=== PATIENT | female | born 1955 | race Hispanic/Latino ===

== ENCOUNTER 2017-08-27 10:47 | Emergency (ER) | payer OTHER ==
[2017-08-27 10:47] VITALS: BMI 23.8
--- NOTE | 2017-08-27 11:02 | ED PDOC ---
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 She stated she was on her knee performing an IV placement. When she was standing up she felt a crunching sound from her left knee. She stated her left knee appears mildly swollen. Patient able to ambulate with mild discomfort of pain from her left knee. Patient denies hip pain, ankle pain, back pain, dizziness, ecchymosis, or abnormal gait. Time/Duration: Prior to Arrival Quality: Aching Context: Work Past Medical History - Provider Review Nursing Documentation Reviewed: Yes - Infectious Disease Hx of Infectious Diseases: None - Tetanus Immunization Tetanus Immunization: Up to Date - Past Medical History Past Medical History: No Previous - Cardiac Hx Hypertension: Yes Other/Comment: Open Heart Surgery - Psychiatric Hx Substance Use: No - Surgical History Hx Open Heart Surgery: Yes - Anesthesia Hx Anesthesia: Yes Hx Anesthesia Reactions: No Hx Malignant Hyperthermia: No - Suicidal Assessment Feels Threatened In Home Enviroment: No Family/Social History - Physician Review Nursing Documentation Reviewed: Yes Family/Social History: Other (Noncontributory) Smoking Status: Former Smoker Hx Alcohol Use: No Hx Substance Use: No Hx Substance Use Treatment: No Allergies/Home Meds Allergies/Adverse Reactions: Allergies No Known Allergies Allergy (Verified 08/27/17 10:55) Home Medications: Home Meds Medication Instructions Recorded Confirmed Losartan [Cozaar] 50 mg PO DAILY 08/27/17 08/27/17 Review of Systems - Review of Systems Constitutional: Normal. absent: Fatigue, Weight Change, Fevers Eyes: Normal ENT: Normal Respiratory: Normal. absent: SOB, Cough Cardiovascular: Normal. absent: Chest Pain, Palpitations Gastrointestinal: Normal. absent: Abdominal Pain, Nausea, Vomiting Genitourinary Female: Normal. absent: Dysuria, Frequency, Hematuria Musculoskeletal: Other (Left knee pain) Skin: Normal Neurological: Normal Endocrine: Normal Hemo/Lymphatic: Normal Psychiatric: Normal Physical Exam Vital Signs Temp Pulse Resp BP Pulse Ox 08/27/17 12:42 97.7 F 68 20 143/80 97 08/27/17 10:52 98.2 F 71 16 135/82 99 Temperature: Afebrile Blood Pressure: Normal Pulse: Regular Respiratory Rate: Normal Appearance: Positive for: Well-Appearing, Non-Toxic, Comfortable Pain Distress: None Mental Status: Positive for: Alert and Oriented X 3 - Systems Exam Head: Present: Atraumatic, Normocephalic Pupils: Present: PERRL Extroacular Muscles: Present: EOMI Conjunctiva: Present: Normal Mouth: Present: Moist Mucous Membranes Neck: Present: Normal Range of Motion Back: Present: Normal Inspection. No: CVA Tenderness Upper Extremity: Present: Normal Inspection, Normal ROM, NORMAL PULSES, Neurovascularly Intact, Capillary Refill < 2s. No: Cyanosis, Edema Lower Extremity: Present: Normal Inspection, NORMAL PULSES, Normal ROM, Tenderness (mild tenderness over proxima anterior lower leg area. No erythema, or septic knee joint), Neurovascularly Intact, Capillary Refill < 2 s. No: Edema, CALF TENDERNESS Neurological: Present: GCS=15, CN II-XII Intact, Speech Normal, Motor Func Grossly Intact, Normal Sensory Function, Normal Cerebellar Funct, Gait Normal Skin: Present: Warm, Dry, Normal Color. No: Rashes Psychiatric: Present: Alert, Oriented x 3, Normal Insight, Normal Concentration Medical Decision Making ED Course and Treatment: 08/27/17 11:00 Patient refuses pain medication at this time. 08/27/17 12:38 I spoke patient regarding knee x-rays results. I recommended pt RICE, and to f/ u orthopedist in 3-5 days. 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 If pain persist or worsen, to have MRI of knee. Re-evaluation Time: 12:41 Reassessment Condition: Re-examined, Improved - RAD Interpretation Narrative RAD Interpretations (Text): 08/27/17 12:41 Knee x-rays: No fracture. Radiology Orders: 08/27/17 11:01 KNEE WITH PATELLA LEFT 3 VIEW [RAD] Stat Disposition/Present on Arrival - Present on Arrival Any Indicators Present on Arrival: No History of DVT/PE: No History of Uncontrolled Diabetes: No Urinary Catheter: No History of Decub. Ulcer: No History Surgical Site Infection Following: None - Disposition Have Diagnosis and Disposition been Completed?: Yes Diagnosis: Knee pain Disposition: HOME/ ROUTINE Disposition Time: 12:42 Patient Plan: Discharge Condition: GOOD Discharge Instructions (ExitCare): Knee Pain (ED) Additional Instructions: Call private doctor for follow up visit in 1-2 days. Call employee health department for further instruction and f/u. Call orthopedist if knee pain worsen or if it does not improved, for possible MRI. Keep knee elevated, rest, maricruz bandage. Remove maricruz bandage at bedtime. Return to ED if pain worsen. Prescriptions: Famotidine [Pepcid] 40 mg PO DAILY #10 tablet Ibuprofen [Motrin] 600 mg PO Q8 PRN #20 tab PRN Reason: Pain, Severe (8-10) Referrals: Donte Rush MD [Family Provider] - Follow up with primary Santos Donahue MD [Staff Provider] - Follow up with primary Forms: [facility] (Czech), WORK NOTE
[2017-08-27 12:43] VITALS: BP 143/80; PULSE 68; RESP 20; TEMP 97.7; O2SAT 97
--- NOTE | 2017-08-27 13:53 | RAD ---
PROCEDURE: Left Knee Radiographs. HISTORY: Pain. COMPARISON: None. FINDINGS: BONES: Normal. No fracture. JOINTS: Normal. No osteoarthritis. JOINT EFFUSION: None. OTHER FINDINGS: None. IMPRESSION: Normal radiographs of the left knee.
== END 2017-08-27 12:42 | disposition home or self-care (01) ==
LOC: ED 10:47
DX: M25.562 Pain in left knee (principal)

== ENCOUNTER 2017-11-10 12:00 | Inpatient (IN) | payer OTHER ==
[2017-11-10 12:02] VITALS: BMI 22.4
--- NOTE | 2017-11-10 12:29 | ED PDOC ---
Arrival/HPI - General Chief Complaint: Lower Extremity Problem/Injury Time Seen by Provider: 11/10/17 12:20 Historian: Patient - History of Present Illness Narrative History of Present Illness (Text): 11/10/17 12:25 Patricia Soriano is a 62 year old female, whose past medical history includes hypertension and open heart surgery, who presents to the emergency department complaining of cramping on left leg s/p surgery for meniscus tear, pt states cramping/left leg discomfort x 1-2 days. Patient reports feeling a cold sensation, but no noted swelling since it has been in a brace since the surgery. Patient denies fall, paresthesias, focal weakness, sensory deficit. pt denied fever/chills/sweats, no cp/palpitations, mild sob, no abd pain, no n/v, no numbness/tingling, no urinary/bowel changes; Patient is with full range of motion in affected extremity. No other complaints were made. pt had outpt duplex/us of the left lower extremity and was noted to have + Left leg DVT, pt was instructed to come to ED for further care/evaluation pt denied other complaints PMD: Dr. Awan 11/10/17 18:12 Symptom Onset: Sudden Symptom Course: Unchanged Context: Home Past Medical History - Provider Review Nursing Documentation Reviewed: Yes - Travel History Have you recently traveled outside [place] w/in the past 3 mons?: No - Infectious Disease Hx of Infectious Diseases: None - Tetanus Immunization Tetanus Immunization: Up to Date - Reproductive Menopause: Yes - Past Medical History Past Medical History: No Previous - Cardiac Hx Hypertension: Yes Other/Comment: Open Heart Surgery - Psychiatric Hx Substance Use: No - Surgical History Hx Musculoskeletal Surgery: Yes (torn miniscus) Hx Open Heart Surgery: Yes - Anesthesia Hx Anesthesia: Yes Hx Anesthesia Reactions: No Hx Malignant Hyperthermia: No - Suicidal Assessment Feels Threatened In Home Enviroment: No Family/Social History - Physician Review Nursing Documentation Reviewed: Yes Family/Social History: Unknown Family HX Smoking Status: Former Smoker Hx Alcohol Use: No Hx Substance Use: No Hx Substance Use Treatment: No Allergies/Home Meds Allergies/Adverse Reactions: Allergies No Known Allergies Allergy (Verified 08/27/17 10:55) Home Medications: Home Meds Medication Instructions Recorded Confirmed Losartan [Cozaar] 50 mg PO DAILY 08/27/17 11/10/17 Aspirin [Ecotrin] 81 mg PO DAILY 11/10/17 11/10/17 Review of Systems - Review of Systems Constitutional: absent: Fevers Eyes: Normal ENT: Normal Respiratory: SOB. absent: Cough, Sputum Cardiovascular: absent: Chest Pain Gastrointestinal: absent: Abdominal Pain Genitourinary Female: absent: Dysuria, Frequency Musculoskeletal: Other (left leg cramping and cold sensation). absent: Back Pain Endocrine: absent: Diaphoresis Psychiatric: absent: Anxiety Physical Exam Vital Signs Reviewed: Yes (elevated BP) Vital Signs Temp Pulse Resp BP Pulse Ox 11/10/17 16:00 98.4 F 81 20 128/82 95 11/10/17 15:06 69 18 152/71 H 99 11/10/17 12:18 98.3 F 72 18 158/78 H 99 Temperature: Afebrile Blood Pressure: Hypertensive Pulse: Regular Respiratory Rate: Normal Appearance: Positive for: Well-Appearing, Non-Toxic, Other (uncomfortable, alert /awake, GCS = 15, oriented x 3, resting in bed; NAD) Pain Distress: None Mental Status: Positive for: Alert and Oriented X 3 - Systems Exam Head: Present: Atraumatic, Normocephalic Pupils: Present: PERRL, Other (no nystagmus, no photophobia, sclera anicteric) Extroacular Muscles: Present: EOMI Conjunctiva: Present: Normal Mouth: Present: Moist Mucous Membranes, Other (no drooling/stridor, no exudate/ lesions, fair dentitions) Pharnyx: Present: Normal Nose (External): Present: Atraumatic Neck: Present: Normal Range of Motion, Trachea Midline. No: MIDLINE TENDERNESS Respiratory/Chest: Present: Clear to Auscultation, Good Air Exchange, Other ( CTA b/l, no w/r/r; no tachypenia, no accessory muscle use noted). No: Respiratory Distress, Accessory Muscle Use Cardiovascular: Present: Regular Rate and Rhythm, Normal S1, S2. No: Murmurs Abdomen: Present: Normal Bowel Sounds, Other (well nourished female, no focal tenderness, no yanez's sign, no mcburney's point tenderness). No: Tenderness, Distention, Peritoneal Signs Back: Present: Normal Inspection Upper Extremity: Present: Normal Inspection, Normal ROM, NORMAL PULSES, Neurovascularly Intact, Capillary Refill < 2s. No: Cyanosis, Edema, Tenderness , Swelling, Erythema, Deformity Lower Extremity: Present: Normal Inspection, NORMAL PULSES, Lilliam's Sign, Tenderness, Swelling, Neurovascularly Intact, Capillary Refill < 2 s, Other (+ left lower calf tenderness, + lilliam's sign; neurovasc intact b/l; + cool left foot is noted, no discoloration, sensation is intact, strength 5/5 grossly intact b/l). No: Edema, Cyanosis, Erythema, Deformity Neurological: Present: GCS=15, CN II-XII Intact, Speech Normal Skin: Present: Warm, Dry, Normal Color. No: Rashes Psychiatric: Present: Alert, Oriented x 3, Normal Insight, Normal Concentration Medical Decision Making ED Course and Treatment: 11/10/17 Impression: + abnl U/S (+DVT) 62 year old female with cramping on left leg s/p surgery for meniscus tear. I have considered all Differential Diagnosis regarding pt's chief medical complaints/clinical findings included but are not limited to: DVT vs. r/o PE vs. aneurysm Plan: -- CT chest -- EKG -- Labs -- Ultrasound extremity -- Catapres and Sodium Chloride -- Reassess and disposition Progress Notes: 11/10/17 13:[address] Morales who is covering for Dr. Kenney (Dr Rush) and is made aware of EM medical finding. She agrees with emergency department management and admission, and recommends heparin drip. 11/10/17 19:12 11/10/17 19:28 pt is made aware of her medical results agrees with admission Re-evaluation Time: 16:00 Reassessment Condition: Improving,but remains with symptoms - Lab Interpretations Lab Results: 11/10/17 12:30 11/10/17 12:30 Lab Results 11/10/17 12:30: Sodium 141, Chloride 103, Potassium 4.3, Carbon Dioxide 25, Anion Gap 16, BUN 16, Creatinine 0.7, Est GFR ( Amer) > 60, Est GFR (Non- Af Amer) > 60, Random Glucose 104, Calcium 10.1, Total Bilirubin 0.6, AST 34, ALT 41, Alkaline Phosphatase 89, Lactate Dehydrogenase 417, Total Creatine Kinase 25 L, Troponin I < 0.01, NT-Pro-B Natriuret Pep 107, Total Protein 8.3, Albumin 4.4, Globulin 3.9, Albumin/Globulin Ratio 1.1 11/10/17 12:30: pO2 18 L, VBG pH 7.37, VBG pCO2 50.0, VBG HCO3 28.9 H, VBG Total CO2 30.4 H, VBG O2 Sat (Calc) 35.3 L, VBG Base Excess 2.7 H, VBG Potassium 4.4, Sodium 137.0, Chloride 104.0, Glucose 107 H, Lactate 1.6, FiO2 21.0, Venous Blood Potassium 4.4 11/10/17 12:30: PT 10.6, INR 0.96, APTT 27.7 11/10/17 12:30: WBC 7.0 D, RBC 4.87, Hgb 15.0, Hct 43.9, MCV 90.1, MCH 30.8, MCHC 34.2, RDW 14.5, Plt Count 215, MPV 10.6, Gran % 62.8, Lymph % (Auto) 30.3, [place] % (Auto) 4.4, Eos % (Auto) 2.2, Baso % (Auto) 0.3, Gran # 4.38, Lymph # 2.1 , [place] # 0.3, Eos # 0.2, Baso # 0.02 WNL I have reviewed the lab results: Yes Interpretation: All labs normal - RAD Interpretation Narrative RAD Interpretations (Text): 11/10/17 12:25 Ultrasound Impression: posterior tibial vein + DVT Radiology Orders: 11/10/17 12:21 ANGIO CHEST PE PROTOCOL [CT] Stat PROCEDURE: CT Chest with contrast (Pulmonary Angiogram) HISTORY: left DVT, sob, r/o PE COMPARISON: None available. TECHNIQUE: Axial computed tomography images were obtained of the chest in the pulmonary arterial phase of enhancement. Coronal and sagittal reformatted images were created and reviewed. Intravenous contrast dose: 100 cc of Visipaque 320 Radiation dose: Total exam DLP = 290 mGy-cm. This CT exam was performed using one or more of the following dose reduction techniques: Automated exposure control, adjustment of the mA and/or kV according to patient size, and/or use of iterative reconstruction technique. FINDINGS: PULMONARY ARTERIES: Unremarkable. No pulmonary embolism. AORTA: No acute findings. No thoracic aortic aneurysm. LUNGS: Unremarkable. No nodule, mass or pulmonary consolidation. PLEURAL SPACES: Unremarkable. No effusion or pneuomothorax. HEART: Unremarkable. No cardiomegaly. No significant pericardial effusion. LYMPH NODES: No lymphadenopathy. BONES, CHEST WALL: Unremarkable. No fracture or destructive lesion OTHER FINDINGS: Unremarkable. IMPRESSION: Unremarkable CT pulmonary angiogram. No pulmonary embolus. 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 Rate : 70 BPM Rhythm : NSR Interpretation : RAD. no ectopy. inverted t-wave V1, V2. No ST-segment elevations or depressions. Borderline EKG; unchanged compare with old ekg 201611/10/17 19:03 Interpreted by ED Physician: Yes Type: 12 lead EKG Comparison: Similar to previous EKG - Medication Orders Current Medication Orders: Aspirin (Ecotrin) 81 mg PO DAILY TRAVIS Sodium Chloride (Sodium Chloride 0.9%) 1,000 mls @ 100 mls/hr IV .Q10H TRAVIS Last Admin: 11/10/17 12:45 Dose: 100 mls/hr eMAR Start Stop Document 11/10/17 12:45 MS (Rec: 11/10/17 15:40 MS [id number]) Intravenous Solution Start Date 11/10/17 Start Time 12:45 Heparin Sodium/Sodium Chloride (Heparin 42007 Units/250ml 1/2 Normal Saline) 25 ,000 units in 250 mls @ 11.724 mls/hr IV .C38M19H PRN; Protocol; 18 UNITS/KG/HR PRN Reason: ADJUST RATE PER PROTOCOL Last Admin: 11/10/17 15:36 Dose: 18 units/kg/hr, 11.724 mls/hr eMAR Start Stop Document 11/10/17 15:36 MS (Rec: 11/10/17 15:38 MS [id number]) Intravenous Solution Start Date 11/10/17 Start Time 15:37 Titration Intervention Document 11/10/17 15:36 MS (Rec: 11/10/17 15:38 MS [id number]) Titration Intake Waste Amount 0 Container Volume 250 Titration Dosing Titration Dose 18 IV Rate 11.724 Intake/Decrease Started Ibuprofen (Motrin Tab) 600 mg PO Q8 PRN PRN Reason: Pain, severe (8-10) Last Admin: 11/10/17 17:57 Dose: 600 mg MAR Pain/Vitals Document 11/10/17 17:57 LO (Rec: 11/10/17 17:57 LO [id number]) Pain Reassessment Is This A Pain ReAssessment? No Sleep Is patient sleeping during reassessment? No Presence of Pain Presence of Pain Yes Losartan Potassium (Cozaar) 50 mg PO DAILY [facility] Last Admin: 11/10/17 17:57 Dose: 50 mg MAR Pulse and Blood Pressure Document 11/10/17 17:57 LO (Rec: 11/10/17 17:59 LO [id number]) Blood Pressure Blood Pressure (100/60-150/90) 128/88 Morphine Sulfate (Morphine) 2 mg IM Q4H PRN PRN Reason: Pain, moderate (4-7) Pantoprazole Sodium (Protonix Inj) 40 mg IVP DAILY [facility] Last Admin: 11/10/17 17:57 Dose: 40 mg IVP Administration Document 11/10/17 17:57 LO (Rec: 11/10/17 17:57 LO [id number]) Charges for Administration # of IVP Administrations 1 Discontinued Medications Acetaminophen (Tylenol 325mg Tab) 650 mg PO STAT STA Stop: 11/10/17 14:17 Last Admin: 11/10/17 15:39 Dose: 650 mg MAR Pain/Vitals Document 11/10/17 15:39 MS (Rec: 11/10/17 15:40 MS [id number]) Pain Reassessment Is This A Pain ReAssessment? No Sleep Is patient sleeping during reassessment? No Presence of Pain Presence of Pain Yes Pain Scale Used Pain Scale Used Numeric Heparin Sodium (Porcine) (Heparin) 5,200 units 80 units/kg (5200 units) IV ONCE ONE PRN Reason: Protocol Stop: 11/10/17 15:14 Last Admin: 11/10/17 15:26 Dose: 5,200 units eMAR Start Stop Document 11/10/17 15:26 MS (Rec: 11/10/17 15:27 MS [id number]) Intravenous Solution Start Date 11/10/17 Start Time 15:27 JAN aPTT Document 11/10/17 15:26 MS (Rec: 11/10/17 15:27 MS [id number]) aPTT aPTT (secs) 27 Heparin Sodium/Dextrose (Heparin 25,000 Units/250ml In D5w) 25,000 units in 250 mls @ 10.043 mls/hr IV .Q24H PRN; Protocol; 18 UNITS/KG/HR PRN Reason: ADJUST RATE PER PROTOCOL - Scribe Statement The provider has reviewed the documentation as recorded by the Scribe Dorothy Suero Provider Scribe Attestation: All medical record entries made by the Scribe were at my direction and personally dictated by me. I have reviewed the chart and agree that the record accurately reflects my personal performance of the history, physical exam, medical decision making, and the department course for this patient. I have also personally directed, reviewed, and agree with the discharge instructions and disposition. Disposition/Present on Arrival - Present on Arrival Any Indicators Present on Arrival: No History of DVT/PE: No History of Uncontrolled Diabetes: No Urinary Catheter: No History of Decub. Ulcer: No History Surgical Site Infection Following: None - Disposition Have Diagnosis and Disposition been Completed?: Yes Diagnosis: DVT (deep venous thrombosis), Elevated blood pressure reading Diagnosis: (Ruled Out): DVT of axillary vein, acute left Disposition: HOSPITALIZED Disposition Time: 16:00 Patient Plan: Admission, Telemetry Patient Problems: Current Active Problems Problem Status Onset DVT (deep venous thrombosis) Acute Elevated blood pressure reading Acute Condition: STABLE
[2017-11-10] MEDS: Sodium Chloride 0.9% 1,000 ML IV SCH (12:45)
[2017-11-10 12:51] LABS: BASO # 0.02 K/mm3 (0.0-2.0); BASO % 0.3 % (0.0-3.0); EOS # 0.2 (0.0-0.7); EOS % 2.2 % (1.5-5.0); GRAN # 4.38 (1.4-6.5); GRAN % 62.8 % (50.0-68.0); LYMPH # 2.1 (1.2-3.4); LYMPH % 30.3 % (22.0-35.0); MEAN CELL VOLUME 90.1 fl (80.0-105.0); MEAN CORPUSCULAR HEMOGLOBIN 30.8 pg (25.0-35.0); MEAN CORPUSCULAR HGB CONC 34.2 g/dl (31.0-37.0); MEAN PLATELET VOLUME 10.6 fl (7.0-11.0); MONO # 0.3 (0.1-0.6); MONO % 4.4 % (1.0-6.0); RBC 4.87 10^6/uL (3.5-6.1); RED CELL DISTRIBUTION WIDTH 14.5 % (11.5-14.5)
[2017-11-10 12:55] LABS: VENOUS BLOOD GAS BASE EXCESS 2.7 mmol/L (0.0-2.0); VENOUS BLOOD GAS PO2 18 mm/Hg (30-55); VENOUS BLOOD PH 7.37 (7.32-7.43)
[2017-11-10 12:58] LABS: INR 0.96 (0.93-1.08); PARTIAL THROMBOPLASTIN TIME 27.7 Seconds (25.1-36.5); PROTHROMBIN TIME 10.6 SECONDS (9.4-12.5)
[2017-11-10 13:12] LABS: B-TYPE NATRIURETIC PEPTIDE 107 pg/mL (0-450); TROPONIN I < 0.01 ng/mL
[2017-11-10 13:18] LABS: ALB/GLOB RATIO 1.1 (1.1-1.8); ALBUMIN 4.4 g/dL (3.0-4.8); ALT/SGPT 41 U/L (7-56); AST/SGOT 34 U/L (14-36); BLOOD UREA NITROGEN 16 mg/dL (7-21); CALCIUM 10.1 mg/dL (8.4-10.5); GFR AFRICAN-AMERICAN > 60; GFR NON-AFRICAN AMERICAN > 60
[2017-11-10] MEDS ORDERED: Heparin 25,000units in D5W 25,000 UNITS/250 ML BAG IV PRN ×2 (14:00→22:27)
[2017-11-10] MEDS ORDERED: Heparin25000 units/250ml 1/2NS 25,000 UNITS/250 ML BAG IV PRN ×3 (14:11→23:15)
--- NOTE | 2017-11-10 14:57 | CT ---
PROCEDURE: CT Chest with contrast (Pulmonary Angiogram) HISTORY: left DVT, sob, r/o PE COMPARISON: None available. TECHNIQUE: Axial computed tomography images were obtained of the chest in the pulmonary arterial phase of enhancement. Coronal and sagittal reformatted images were created and reviewed. Intravenous contrast dose: 100 cc of Visipaque 320 Radiation dose: Total exam DLP = 290 mGy-cm. This CT exam was performed using one or more of the following dose reduction techniques: Automated exposure control, adjustment of the mA and/or kV according to patient size, and/or use of iterative reconstruction technique. FINDINGS: PULMONARY ARTERIES: Unremarkable. No pulmonary embolism. AORTA: No acute findings. No thoracic aortic aneurysm. LUNGS: Unremarkable. No nodule, mass or pulmonary consolidation. PLEURAL SPACES: Unremarkable. No effusion or pneuomothorax. HEART: Unremarkable. No cardiomegaly. No significant pericardial effusion. LYMPH NODES: No lymphadenopathy. BONES, CHEST WALL: Unremarkable. No fracture or destructive lesion OTHER FINDINGS: Unremarkable. IMPRESSION: Unremarkable CT pulmonary angiogram. No pulmonary embolus.
--- NOTE | 2017-11-10 17:38 | CARD ---
APPROVED REPORT EKG Measurement Heart [id number] ND [id number] <Conclusion> Normal sinus rhythm Rightward axis Borderline ECG
[2017-11-10] MEDS ORDERED: Morphine 2 mg/ml ISec IM PRN (17:51)
[2017-11-10] MEDS: Heparin25000 units/250ml 1/2NS 25,000 UNITS/250 ML BAG IV PRN (23:15)
--- NOTE | 2017-11-11 00:26 | HP ---
DATE OF EVALUATION: 11/10/2017. HISTORY OF PRESENT ILLNESS: The patient is 62-year-old female, admitted to the hospital with left tibial DVT. She recently has meniscus repair on the left knee, noticed swelling of the leg for the past 2 days. Ultrasound Doppler done showed posterior tibial DVT on the left leg. She has history of hypertension, blood pressure controlled with current medication, has coronary artery disease, status post open heart cardiac bypass surgery. She is also complaining of headache. PAST MEDICAL HISTORY: Coronary artery disease and hypertension. PAST SURGICAL HISTORY: Open heart surgery. Recent torn meniscus repair on the left knee. FAMILY HISTORY: Noncontributory. SOCIAL HISTORY: Personal history; former smoker. No history of alcohol abuse. ALLERGIES: NO KNOWN DRUG ALLERGIES. REVIEW OF SYSTEMS: As per HPI. Rest of 12-point review of systems reviewed and negative. PHYSICAL EXAMINATION GENERAL: Comfortable in bed, in no acute distress. VITAL SIGNS: Temperature is 98.3, heart rate 72 per minute, blood pressure is 158/78, and pulse ox is 99% on room air, respiratory rate is 18 per minute. HEENT: Normal. NECK: Supple. No lymphadenopathy. CHEST: Air entry present and equal bilaterally. No added sounds. CARDIOVASCULAR: S1 and S2 normal. No murmur. No gallop. ABDOMEN: Soft, nontender. No hepatosplenomegaly. EXTREMITIES: Left calf swelling. Tenderness present. Right leg normal. SKIN: No petechiae. No rash. SPINE: Nontender. LABORATORY DATA: White count 7000, hemoglobin 15, hematocrit 43.9, and platelet count 215. Sodium 141, potassium 4.3, BUN 16, and creatinine 0.7. Glucose 104. Troponin negative. Creatine kinase 25. CT chest with PE protocol did not show any pulmonary embolism. ASSESSMENT: 1. Deep vein thrombosis, left leg in the tibial vein. 2. Possible hypercoagulable state. 3. Hypertension. 4. Coronary artery disease, status post cardiac bypass surgery. PLAN: She will admitted to the hospital, telementoring. We will start the heparin dose. We will continue heparin dose for atleast 24-hours before starting the oral anticoagulation. After 24-hours of heparin drip, I will start Eliquis 10 mg p.o. b.i.d. Thrombophilia workup ordered. Protein C and protein S activity and level, Antithrombin III, prothrombin gene mutation, MTHFR gene mutation, factor V Leiden, CAROL, and antiphospholipid antibody. She has significant pain on the left leg. Until pain and swelling decreased, she will limit the activity as tolerated. Compression stocking will help with the edema, pain and swelling. Morphine 2 mg IV every 4 hours p.r.n. for pain. We will continue Cozaar 50 mg daily, Protonix 40 mg IV daily, aspirin 81 mg daily, and heparin drip with bolus. Monitor heparin as per protocol. Discussed at length with the patient possibility of underlying hypercoagulable state. Jessica Morales MD
[2017-11-11 02:48] VITALS: O2SAT 97
[2017-11-11] MEDS: Sodium Chloride 0.9% 1,000 ML IV SCH (04:10)
[2017-11-11] MEDS ORDERED: Pantoprazole 40 mg EC Tab PO SCH (07:30)
--- NOTE | 2017-11-11 13:29 | PN ---
DATE: 11/11/2017 SUBJECTIVE: The patient has no complaints of any chest pain, no shortness of breath. She states her left leg discomfort is better. PHYSICAL EXAMINATION: VITAL SIGNS: Temperature is 98.7, pulse is 63, blood pressure is 107/62, and respirations are 18. GENERAL: The patient is lying in bed, flat, comfortable. HEENT: No oral lesion. Anicteric sclerae. Moist mucosa. NECK: No JVD, adenopathy, or thyromegaly. CARDIOVASCULAR: S1 and S2, regular. No murmurs, rubs, or gallops. LUNGS: Clear to auscultation bilaterally. No wheeze, rales, or rhonchi. ABDOMEN: Bowel sounds are positive, soft, nontender and nondistended. EXTREMITIES: No cyanosis, clubbing or edema. ASSESSMENT: 1. Left leg deep vein thrombosis prophylaxis. 2. Coronary artery disease. 3. Hypertension. 4. Status post left knee arthroscopy. PLAN: The patient is currently on heparin for anticoagulation. She is on morphine for pain. She is going to continue with Motrin. I will discontinue the patient's IV fluids. We will get Dr. Morales to continue to follow the patient. May need to change the patient to p.o. anticoagulation and have her follow up as an outpatient. She had a CT angio done, which showed no signs of PE. Balta Elkins MD
[2017-11-11 18:11] VITALS: BP 139/90; RESP 20; TEMP 99.7
[2017-11-11] MEDS: Heparin25000 units/250ml 1/2NS 25,000 UNITS/250 ML BAG IV PRN (18:24)
[2017-11-11 18:41] VITALS: PULSE 78
[2017-11-13 23:49] LABS: B2 GLYCOPROTEIN I AB(IGA) <9 SAU (<=20); B2 GLYCOPROTEIN I AB(IGG) <9 SGU (<=20); B2 GLYCOPROTEIN I AB(IGM) <9 SMU (<=20)
[2017-11-14 04:12] LABS: CARDIOLIPIN AB (IGA) <11 APL (<=11); CARDIOLIPIN AB (IGG) <14 GPL (<=14); CARDIOLIPIN AB (IGM) <12 MPL (<=12)
[2017-11-14 04:53] LABS: PHOSPHATIDYLSERINE AB IGA <20 U/mL (<20); PHOSPHATIDYLSERINE AB IGG <10 U/mL (<10); PHOSPHATIDYLSERINE AB IGM <25 U/mL (<25)
== END 2017-11-11 20:32 | disposition home or self-care (01) | DRG 301 ==
LOC: ED 12:00 → ERH 14:01 → 3RNO 16:37
PROVIDERS: ADMIT Internal Medicine Medical Oncology; ATTEND Internal Medicine Medical Oncology
DX: I82.442 Acute embolism and thrombosis of left tibial vein (principal); I10 Essential (primary) hypertension; I25.10 Atherosclerotic heart disease of native coronary artery without angina pectoris; R51 Headache; Z87.891 Personal history of nicotine dependence; Z95.1 Presence of aortocoronary bypass graft; Z79.82 Long term (current) use of aspirin; Z79.899 Other long term (current) drug therapy

== ENCOUNTER 2018-12-22 14:36 | Outpatient (CLI) | payer OTHER | END 2018-12-22 14:37 | disposition home or self-care (01) | LOC: RAD 14:36 ==

== ENCOUNTER 2018-12-28 07:37 | Outpatient (CLI) | payer OTHER | END 2018-12-28 07:38 | disposition home or self-care (01) | LOC: LAB 07:37 ==

== ENCOUNTER 2019-01-18 14:43 | Outpatient (CLI) | payer OTHER | END 2019-01-18 14:44 | disposition home or self-care (01) | LOC: RAD 14:43 ==

== ENCOUNTER 2019-01-25 10:07 | Outpatient (CLI) | payer OTHER | END 2019-01-25 10:08 | disposition home or self-care (01) | LOC: PULMO 10:07 ==